=== PATIENT | male | born 1995 | race Hispanic/Latino ===

== ENCOUNTER 2022-06-22 11:08 | Emergency (ER) | payer SELFPAY ==
[~2022-06-22] VITALS: Ht 170.2 cm; Wt 75.2 kg
[2022-06-22] VITALS (13 sets, daily range): BP systolic 96–119; BP diastolic 57–78
[2022-06-22 12:24] LABS: EOS% 8.9 % (0-8); HEMATOCRIT 43.7 % (39.0-50.0); HEMOGLOBIN 14.5 g/dl (14.0-18.0); IMMATURE GRANULOCYTES 0.5 % (0.0-5.0); LYMPH% 19.3 % (15-41); MEAN CELL VOLUME 87.9 fL CALC (80.0-100.0); MEAN CORPUSCULAR HGB 29.2 pG CALC (26.0-32.0); MEAN CORPUSCULAR HGB CONC 33.2 g/dL CAL (32.0-36.0); MONO% 6.5 % (2-13); NEUT# 5.23 thou/uL (1.82-7.42); NEUT% 63.8 % (42-76); RED BLOOD COUNT 4.97 mill/uL (4.70-6.10); RED CELL DISTRI WIDTH 11.8 % (11.5-15.5)
[2022-06-22 12:40] LABS: ALBUMIN 4.5 g/dL (3.2-5.0); ALKALINE PHOSPHATASE 76 u/l (38-126); ANION GAP 13 (6-22 (CALC)); BILIRUBIN, TOTAL 0.6 mg/dL (0.2-1.3); BUN 12 mg/dL (9-20); BUN/CREATININE RATIO 15 (12-20 (CALC)); CARBON DIOXIDE 25 mmol/l (22-30); CHLORIDE 106 mmol/l (95-108); CREATININE 0.8 mg/dL (0.7-1.3); GFR FOR AFR.AMER. > 60 ML/MIN (>=60 (CALC)); GFR OTHER RACES > 60 ML/MIN (>=60 (CALC)); LIPASE 58 u/l (23-300); POTASSIUM 4.1 mmol/l (3.5-5.1); SGOT/AST 24 u/l (17-59); SODIUM 141 mmol/l (137-146); TOTAL PROTEIN 7.4 g/dL (6.3-8.2)
[2022-06-22] MEDS ORDERED: AMOX/K CLAV875 M1 PO (14:59)
[2022-06-22] MEDS ORDERED: ONDANSETRON4 MG PO (14:59)
[2022-06-22 15:08] LABS: URINE BILIRUBIN - DIPSTICK NEGATIVE (NEGATIVE); URINE BLOOD DIPSTICK NEGATIVE (NEGATIVE); URINE COLOR YELLOW; URINE GLUCOSE - DIPSTICK NEGATIVE (NEGATIVE); URINE KETONE NEGATIVE (NEGATIVE); URINE LEUK ESTERASE NEGATIVE (NEGATIVE); URINE PH 7.5 (4.5-8.0); URINE PROTEIN - DIPSTICK NEGATIVE (NEG-TRACE); URINE UROBILINOGEN - DIPSTICK 0.2 E.U./dL (0.2)
[2022-06-22 15:09] LABS: URINE NITRITE - DIPSTICK NEGATIVE (Negative)
== END 2022-06-22 15:19 | disposition home or self-care (01) | DRG 392 ==
LOC: ED 11:08
PROVIDERS: Nurse Practitioner
DX: K52.9 Noninfective gastroenteritis and colitis, unspecified (principal); R10.9 Unspecified abdominal pain
CPT/HCPCS: Q9967; S0164

== ENCOUNTER 2022-06-24 20:55 | Emergency (ER) | payer SELFPAY ==
[~2022-06-24] VITALS: Ht 170.2 cm; Wt 70.0 kg
[~2022-06-24 20:55] MED LIST: AMOX/K CLAV875 M1 PO; ONDANSETRON4 MG PO
[2022-06-24 22:58] VITALS: BP 120/78
[2022-06-24 23:00] VITALS: BP 129/77
[2022-06-24 23:15] VITALS: BP 117/64
[2022-06-24 23:22] LABS: BASO% 0.5 % (0-3); EOS% 6.1 % (0-8); HEMOGLOBIN 15.4 g/dl (14.0-18.0); IMMATURE GRANULOCYTES 0.3 % (0.0-5.0); LYMPH% 7.5 % (15-41); MEAN CELL VOLUME 87.5 fL CALC (80.0-100.0); MEAN CORPUSCULAR HGB 29.3 pG CALC (26.0-32.0); MEAN CORPUSCULAR HGB CONC 33.5 g/dL CAL (32.0-36.0); MONO% 3.7 % (2-13); NEUT# 14.01 thou/uL (1.82-7.42); NEUT% 81.9 % (42-76); RED BLOOD COUNT 5.26 mill/uL (4.70-6.10); RED CELL DISTRI WIDTH 11.6 % (11.5-15.5)
[2022-06-24 23:30] VITALS: BP 115/64
[2022-06-24 23:38] LABS: ALBUMIN 4.9 g/dL (3.2-5.0); ALKALINE PHOSPHATASE 82 u/l (38-126); AMYLASE 70 u/l (30-110); ANION GAP 13 (6-22 (CALC)); BILIRUBIN, TOTAL 0.5 mg/dL (0.2-1.3); BUN 13 mg/dL (9-20); BUN/CREATININE RATIO 17 (12-20 (CALC)); CARBON DIOXIDE 28 mmol/l (22-30); CHLORIDE 101 mmol/l (95-108); CREATININE 0.8 mg/dL (0.7-1.3); GFR FOR AFR.AMER. > 60 ML/MIN (>=60 (CALC)); GFR OTHER RACES > 60 ML/MIN (>=60 (CALC)); LIPASE 62 u/l (23-300); POTASSIUM 3.8 mmol/l (3.5-5.1); SGOT/AST 28 u/l (17-59); SODIUM 138 mmol/l (137-146); TOTAL PROTEIN 8.5 g/dL (6.3-8.2)
[2022-06-24 23:45] VITALS: BP 111/72
[2022-06-25] VITALS: BP 112/65
[2022-06-25 00:15] VITALS: BP 103/69
[2022-06-25 00:30] VITALS: BP 109/65
[2022-06-25 00:46] VITALS: BP 107/63
[2022-06-25 00:49] LABS: URINE BILIRUBIN - DIPSTICK NEGATIVE (NEGATIVE); URINE BLOOD DIPSTICK NEGATIVE (NEGATIVE); URINE COLOR YELLOW; URINE GLUCOSE - DIPSTICK NEGATIVE (NEGATIVE); URINE KETONE 15 mg/dL (NEGATIVE); URINE LEUK ESTERASE NEGATIVE (NEGATIVE); URINE PROTEIN - DIPSTICK NEGATIVE (NEG-TRACE); URINE SPECIFIC GRAVITY >=1.030; URINE UROBILINOGEN - DIPSTICK 0.2 E.U./dL (0.2)
[2022-06-25 00:51] LABS: URINE NITRITE - DIPSTICK NEGATIVE (Negative)
[2022-06-25] MEDS ORDERED: ULTRAM50 MG PO (03:14)
[2022-06-25] MEDS ORDERED: METRONIDAZOLE500 MG PO (03:14)
[2022-06-25] MEDS ORDERED: CIPROFLOXACN500 MG PO (03:14)
[2022-06-25 03:31] VITALS: BP 107/63
== END 2022-06-25 03:39 | disposition home or self-care (01) | DRG 392 ==
LOC: ED 20:55
PROVIDERS: Emergency Medicine
DX: K52.9 Noninfective gastroenteritis and colitis, unspecified (principal)
CPT/HCPCS: Q9967

== ENCOUNTER 2022-07-03 13:31 | Emergency (ER) | payer SELFPAY ==
[~2022-07-03] VITALS: Ht 170.2 cm; Wt 62.0 kg
[~2022-07-03 13:31] MED LIST changes: +CIPROFLOXACN500 MG PO; +METRONIDAZOLE500 MG PO; +ULTRAM50 MG PO
[2022-07-03 13:41] VITALS: BP 130/83
== END 2022-07-03 14:41 | disposition home or self-care (01) | DRG 125 ==
LOC: ED 13:31
DX: H53.8 Other visual disturbances (principal); K52.9 Noninfective gastroenteritis and colitis, unspecified

== ENCOUNTER 2022-07-31 14:18 | Emergency (ER) | payer SELFPAY ==
[2022-07-31] VITALS (22 sets, daily range): BP systolic 116–143; BP diastolic 72–90
[~2022-07-31] VITALS: Ht 170.2 cm; Wt 72.5 kg
== END 2022-07-31 21:42 | disposition home or self-care (01) | DRG 392 ==
LOC: ED 14:18
DX: K59.00 Constipation, unspecified (principal)

== ENCOUNTER 2023-03-21 13:43 | Emergency (ER) | payer SELFPAY ==
[~2023-03-21] VITALS: Ht 170.2 cm; Wt 78.4 kg
[2023-03-21 16:13] VITALS: BP 127/79
[2023-03-21 17:00] VITALS: BP 108/68
[2023-03-21 17:42] LABS: BASO% 0.8 % (0-3); EOS% 3.3 % (0-8); HEMATOCRIT 45.8 % (39.0-50.0); HEMOGLOBIN 15.6 g/dl (14.0-18.0); LYMPH% 28.2 % (15-41); MEAN CELL VOLUME 89.5 fL CALC (80.0-100.0); MEAN CORPUSCULAR HGB 30.5 pG CALC (26.0-32.0); MEAN CORPUSCULAR HGB CONC 34.1 g/dL CAL (32.0-36.0); MONO% 6.1 % (2-13); NEUT# 4.78 thou/uL (1.82-7.42); NEUT% 60.6 % (42-76); RED BLOOD COUNT 5.12 mill/uL (4.70-6.10); RED CELL DISTRI WIDTH 11.7 % (11.5-15.5)
[2023-03-21 17:52] LABS: ALBUMIN 4.7 g/dL (3.2-5.0); ALKALINE PHOSPHATASE 86 u/l (38-126); BILIRUBIN, TOTAL 0.6 mg/dL (0.2-1.3); BUN 15 mg/dL (9-20); BUN/CREATININE RATIO 20 (12-20 (CALC)); CHLORIDE 104 mmol/l (95-108); CREATININE 0.8 mg/dL (0.7-1.3); GFR FOR AFR.AMER. > 60 ML/MIN (>=60 (CALC)); GFR OTHER RACES > 60 ML/MIN (>=60 (CALC)); LIPASE 99 u/l (23-300); POTASSIUM 3.9 mmol/l (3.5-5.1); SGOT/AST 38 u/l (17-59); SODIUM 138 mmol/l (137-146); TOTAL PROTEIN 8.2 g/dL (6.3-8.2)
[2023-03-21 17:59] LABS: ANION GAP 16 (6-22 (CALC)); CARBON DIOXIDE 22 mmol/l (22-30)
[2023-03-21 18:00] VITALS: BP 110/69
[2023-03-21 19:10] VITALS: BP 110/69
== END 2023-03-21 19:15 | disposition home or self-care (01) | DRG 392 ==
LOC: ED 13:43
PROVIDERS: Emergency Medicine
DX: K59.00 Constipation, unspecified (principal)
CPT/HCPCS: Q9967

== ENCOUNTER 2024-03-11 13:40 | Emergency (ER) | payer SELFPAY ==
[~2024-03-11] VITALS: Ht 170.2 cm; Wt 76.2 kg
[2024-03-11 14:06] VITALS: BP 117/70
[2024-03-11] MEDS ORDERED: ANUCORT-HC25 M1 RE (14:14)
[2024-03-11 14:40] VITALS: BP 117/70
== END 2024-03-11 14:40 | disposition home or self-care (01) | DRG 395 ==
LOC: ED 13:40
DX: K64.9 Unspecified hemorrhoids (principal)

== ENCOUNTER 2024-03-21 15:23 | Emergency (ER) | payer SELFPAY ==
[~2024-03-21 15:23] MED LIST changes: +ANUCORT-HC25 M1 RE
== END 2024-03-21 18:30 | disposition left against medical advice (07) | DRG 951 ==
LOC: ED 15:23 → LWOBS 18:30
DX: Z53.21 Procedure and treatment not carried out due to patient leaving prior to being seen by health care provider (principal)